=== PATIENT | male | born 1960 | race Asian ===

== ENCOUNTER 2018-11-11 07:17 | Outpatient (CLI) | payer MEDICAID ==
[2018-11-11 10:08] LABS: MEAN CORPUSCULAR HEMOGLOBIN 30.3 pg (27.0-31.0); MEAN CORPUSCULAR HGB CONC 33.8 g/dL (32.0-36.0); MEAN CORPUSCULAR VOLUME 89.7 fL (80.0-94.0); MEAN PLATELET VOLUME 11.4 fL (7.4-11.4); RED BLOOD COUNT 4.95 10^6/uL (4.70-6.10); RED CELL DISTRIBUTION WIDTH 12.8 % (12.0-15.0); WHITE BLOOD COUNT 7.1 x10^3/uL (4.8-10.8)
[2018-11-11 10:25] LABS: ALBUMIN 4.2 g/dL (3.2-5.5); ALBUMIN/GLOBULIN RATIO 1.3 (1.0-2.2); ALKALINE PHOSPHATASE 75 IU/L (42-121); ALT ALANINE AMINOTRANSFERASE 27 IU/L (10-60); AST ASPARTATE AMINOTRANSFERASE 16 IU/L (10-42); BILIRUBIN,TOTAL 0.9 mg/dL (0.2-1.0); BUN - BLOOD UREA NITROGEN 14 mg/dL (6-20); CALCIUM 9.3 mg/dL (8.5-10.3); CARBON DIOXIDE - CO2 27 mmol/L (21-32); CHLORIDE 101 mmol/L (101-111); CHOL/HDL RATIO 5.5 (<5.0); CHOLESTEROL 191 mg/dL; CREATININE 0.8 mg/dL (0.6-1.2); GFR - MDRD 100 (>89); GLUCOSE 314 mg/dL (70-100); HDL CHOLESTEROL 35 mg/dL; LDL CHOLESTEROL,CALCULATED 118 mg/dL; LDL/HDL RATIO 3.4 (<3.6); SODIUM 140 mmol/L (135-145); TOTAL PROTEIN 7.5 g/dL (6.7-8.2); VLDL CHOLESTEROL 38 mg/dL
[2018-11-11 10:26] LABS: CREATININE,URINE 99.3 mg/dL; MICROALBUM/CREATININE RATIO,UR 12.1 ug/mg (<30.0); MICROALBUMIN,URINE 1.2 mg/dL (0-300.0)
[2018-11-11 10:30] LABS: HB2 TOTAL 15.4 g/dL; HEMOGLOBIN A1C 1.51 g/dL; HEMOGLOBIN A1C % 11.1 % (4.6-6.2)
== END 2018-11-11 07:18 | disposition home or self-care (01) ==
LOC: LAB.S 07:17
PROVIDERS: ATTEND Internal Medicine
DX: E11.9 Type 2 diabetes mellitus without complications (principal); Z12.5 Encounter for screening for malignant neoplasm of prostate
CPT/HCPCS: 36415; 80053; 80061; 82043; 82570; 83036; 83721; 84153; 85025; 85027

== ENCOUNTER 2019-11-21 07:35 | Outpatient (CLI) | payer BC ==
[2019-11-21 15:11] LABS: BASOPHILS # (AUTO) 0.1 10^3/uL (0.0-0.1); BASOPHILS % (AUTO) 0.9 %; EOSINOPHILS # (AUTO) 0.2 10^3/uL (0.0-0.7); EOSINOPHILS % (AUTO) 3.5 %; HGB - HEMOGLOBIN 14.4 g/dL (14.0-18.0); LYMPHOCYTES # (AUTO) 2.3 10^3/uL (1.5-3.5); LYMPHOCYTES % (AUTO) 41.8 %; MEAN CORPUSCULAR HEMOGLOBIN 29.6 pg (27.0-31.0); MEAN CORPUSCULAR HGB CONC 32.3 g/dL (32.0-36.0); MEAN CORPUSCULAR VOLUME 91.8 fL (80.0-94.0); MONOCYTES # (AUTO) 0.4 10^3/uL (0.0-1.0); MONOCYTES % (AUTO) 6.8 %; NEUTROPHILS # (AUTO) 2.6 10^3/uL (1.5-6.6); NEUTROPHILS % (AUTO) 46.8 %; PLT - PLATELET COUNT 230 10^3/uL (130-450); RED BLOOD COUNT 4.86 10^6/uL (4.70-6.10); RED CELL DISTRIBUTION WIDTH 13.2 % (12.0-15.0); WHITE BLOOD COUNT 5.5 x10^3/uL (4.8-10.8)
[2019-11-21 15:29] LABS: HEMOGLOBIN A1c% 9.8 % (4.27-6.07)
[2019-11-21 15:39] LABS: ALBUMIN 4.2 g/dL (3.2-5.5); ALBUMIN/GLOBULIN RATIO 1.4 (1.0-2.2); ALKALINE PHOSPHATASE 52 IU/L (42-121); ALT ALANINE AMINOTRANSFERASE 30 IU/L (10-60); AST ASPARTATE AMINOTRANSFERASE 21 IU/L (10-42); BILIRUBIN,TOTAL 1.1 mg/dL (0.2-1.0); BUN - BLOOD UREA NITROGEN 15 mg/dL (6-20); CALCIUM 9.4 mg/dL (8.5-10.3); CARBON DIOXIDE - CO2 26 mmol/L (21-32); CHLORIDE 103 mmol/L (101-111); CHOLESTEROL 203 mg/dL; CREATININE 1.1 mg/dL (0.6-1.2); GLUCOSE 201 mg/dL (70-100); HDL CHOLESTEROL 34 mg/dL; LDL CHOLESTEROL,CALCULATED 133 mg/dL; LDL/HDL RATIO 3.9 (<3.6); SODIUM 136 mmol/L (135-145); TOTAL PROTEIN 7.3 g/dL (6.7-8.2); VLDL CHOLESTEROL 36 mg/dL
[2019-11-21 15:43] LABS: CREATININE,URINE 114.9 mg/dL; MICROALBUM/CREATININE RATIO,UR 2.6 ug/mg (<30.0); MICROALBUMIN,URINE 0.3 mg/dL (0-300.0)
== END 2019-11-21 07:36 | disposition home or self-care (01) ==
LOC: LAB.S 07:35
PROVIDERS: ATTEND Registered Nurse
DX: F32.9 Major depressive disorder, single episode, unspecified (principal); K57.90 Diverticulosis of intestine, part unspecified, without perforation or abscess without bleeding; K21.9 Gastro-esophageal reflux disease without esophagitis; E11.65 Type 2 diabetes mellitus with hyperglycemia
CPT/HCPCS: 36415; 80053; 80061; 81599; 82043; 82570; 83036; 83721; 84153; 84443; 85025; 87045; 87046; 87427

== ENCOUNTER 2020-05-13 07:33 | Outpatient (CLI) | payer OTHER | END 2020-05-13 07:34 | disposition home or self-care (01) | LOC: LAB.S 07:33 | PROVIDERS: ATTEND Registered Nurse | DX: F32.9 Major depressive disorder, single episode, unspecified (principal); K57.90 Diverticulosis of intestine, part unspecified, without perforation or abscess without bleeding; K21.9 Gastro-esophageal reflux disease without esophagitis; R19.7 Diarrhea, unspecified; E11.8 Type 2 diabetes mellitus with unspecified complications ==

== ENCOUNTER 2020-05-13 07:45 | Outpatient (CLI) | payer OTHER ==
--- NOTE | 2020-05-13 17:29 | XRAY Report ---
PROCEDURE: Lumbar Spine 2 View INDICATIONS: RADICULOPATHY TECHNIQUE: 3 views of the lumbar spine were acquired. COMPARISON: None. FINDINGS: Bones: 5 [id number] vertebrae are present. There is approximately 16 degrees of convex right jenae mbar spine scoliosis. There is normal bony alignment. No vertebral body compression fractures. No s uspicious bony lesions. Mild degenerative disc disease noted throughout the lumbar spine. Mild L4-L5 and L5-S1 facet arthropathy. Soft tissues: Overlying bowel gas pattern is normal. No suspicious soft tissue calcifications. IMPRESSION: 1. Multilevel degenerative disc disease. 2. Multilevel facet arthropathy. 3. Convex right scoliosis. 4. No fracture. No acute osseous lesion. If there is continued clinical concern for pathology, then M RI should be considered for further evaluation. Reviewed by: Katty Gayle MD, PhD on 05/13/2020 5:28 PM PDT Approved by: Katty Gayle MD, PhD on 05/13/2020 5:28 PM PDT Station ID: [id number]
== END 2020-05-13 07:46 | disposition home or self-care (01) ==
LOC: DI.S 07:45
PROVIDERS: ATTEND Registered Nurse
DX: M47.816 Spondylosis without myelopathy or radiculopathy, lumbar region (principal); M47.817 Spondylosis without myelopathy or radiculopathy, lumbosacral region; M51.36 Other intervertebral disc degeneration, lumbar region

== ENCOUNTER 2020-08-25 15:01 | Outpatient (CLI) | payer OTHER ==
--- NOTE | 2020-08-25 15:21 | XRAY Report ---
PROCEDURE: Foot 3 View RT INDICATIONS: CALCANEAL SPUR RIGHT FOOT TECHNIQUE: 3 views of the foot were acquired. COMPARISON: None FINDINGS: Bones: No fractures or dislocations. No suspicious bony lesions. Calcaneus has a plantar calcaneal spur and a posterior calcaneal spur. Soft tissues: No tibiotalar joint effusion. Achilles tendon appears normal. IMPRESSION: Plantar calcaneal spur and posterior calcaneal spur. No evidence acute bony abnormality of the right foot. Reviewed by: Bry Callejas MD on 08/25/2020 2:19 PM [facility] Approved by: Byr Callejas MD on 08/25/2020 2:19 PM [facility] Station ID: [id number]
== END 2020-08-25 23:59 | disposition home or self-care (01) ==
LOC: DI.S 15:01
PROVIDERS: ATTEND Emergency Medicine
DX: M77.31 Calcaneal spur, right foot (principal)

== ENCOUNTER 2020-10-10 07:03 | Outpatient (CLI) | payer OTHER ==
[2020-10-10 16:44] LABS: CALCIUM 9.3 mg/dL (8.5-10.3); POTASSIUM 3.7 mmol/L (3.5-5.0)
[2020-10-10 16:49] LABS: CREATININE,URINE 231.5 mg/dL; MICROALBUM/CREATININE RATIO,UR 4.8 ug/mg (<30.0); MICROALBUMIN,URINE 1.1 mg/dL (0-300.0)
[2020-10-10 21:34] LABS: ESTIMATED AVERAGE GLUCOSE 174 mg/dL (70-100); HEMOGLOBIN A1c% 7.7 % (4.27-6.07)
== END 2020-10-10 07:04 | disposition home or self-care (01) ==
LOC: LAB.S 07:03
PROVIDERS: ATTEND Registered Nurse
DX: E11.8 Type 2 diabetes mellitus with unspecified complications (principal)
CPT/HCPCS: 36415; 80048; 82043; 82570; 83036

== ENCOUNTER 2021-01-19 14:59 | Outpatient (CLI) | payer OTHER | END 2021-01-19 23:59 | disposition home or self-care (01) | LOC: LAB 14:59 | PROVIDERS: ATTEND Physician Assistant Medical | DX: J34.89 Other specified disorders of nose and nasal sinuses (principal); Z20.822 Contact with and (suspected) exposure to COVID-19 ==

== ENCOUNTER 2021-03-30 12:59 | Outpatient (CLI) | payer OTHER ==
--- NOTE | 2021-03-30 15:45 | XRAY Report ---
PROCEDURE: Knee 3 View LT, x-ray INDICATIONS: PAIN IN LEFT KNEE TECHNIQUE: 3 views of the left knee(s) were acquired. COMPARISON: None. FINDINGS: Bones: Orthopedic hardware noted associated with the medial tibial plateau. Stippled calcification no jazz overlying both menisci. Mild joint space narrowing noted involving both the medial and lateral co mpartments. Atherosclerotic calcification noted. Soft tissues: No joint effusion. No suspicious soft tissue calcifications. IMPRESSION: Chondrocalcinosis and mild osteoarthritis Popliteal calcific atherosclerosis Orthopedic hardware Reviewed by: Shiv Chase MD on 03/30/2021 2:44 PM AK[facility] Approved by: Shiv Chase MD on 03/30/2021 2:44 PM AKST Station ID: [id number]
== END 2021-03-30 23:59 | disposition home or self-care (01) ==
LOC: DI.S 12:59
PROVIDERS: ATTEND Registered Nurse
DX: M17.12 Unilateral primary osteoarthritis, left knee (principal); M11.262 Other chondrocalcinosis, left knee

== ENCOUNTER 2021-04-08 07:45 | Outpatient (CLI) | payer OTHER ==
--- NOTE | 2021-04-08 12:47 | XRAY Report ---
PROCEDURE: Knee 4 View LT INDICATIONS: LEFT KNEE PAIN TECHNIQUE: 3 views of the left knee(s) were acquired. AP view of both knees. COMPARISON: March 30, 2021. FINDINGS: BONES/JOINT: No acute, displaced fracture or dislocation. Small suprapatellar joint effusion. Mild to moderate bilateral medial compartment narrowing. Postsurgical change of the left medial tibia. Sclerotic focus within the left fibula head, which may reflect a bone island or enchondroma. SOFT TISSUES: No significant abnormality. Bilateral meniscal calcification. IMPRESSION: 1.No acute osseous abnormality. Reviewed by: Feliciano Jimenez MD on 04/08/2021 12:46 PM PST Approved by: Feliciano Jimenez MD on 04/08/2021 12:46 PM PST Station ID: [id number]
== END 2021-04-08 07:46 | disposition home or self-care (01) ==
LOC: DI.WOS 07:45
PROVIDERS: ATTEND Physician Assistant
DX: M25.362 Other instability, left knee (principal)

== ENCOUNTER 2021-04-21 07:15 | Outpatient (CLI) | payer OTHER ==
--- NOTE | 2021-04-21 10:53 | MRI Report ---
PROCEDURE: Knee LT W/O INDICATIONS: PAIN IN LEFT KNEE, INSTABILITY OF LEFT KNEE JOINT TECHNIQUE: Noncontrast sagittal PD fast spin echo and T2 fast spin echo with fat saturation, sagittal 3-D spoile d GE with fat saturation; coronal T1 spin echo and PD fast spin echo with fat saturation, and axial P D fast spin echo with fat saturation through the knee. COMPARISON: Left knee radiographs 04/08/2021 FINDINGS: Image quality: Excellent. Menisci: There is horizontal oblique tearing of the posterior horn and body of the medial meniscus e xtending to the inner third of the tibial articular surface. A 4 mm linear hypointense structure farnaz cent to the posterior horn of the medial meniscus (image 21 of series 401 and image 21 of series 901) may represent a centrally displaced meniscal flap fragment or possibly an intra-articular loose body . There is horizontal tearing of the lateral meniscal body extending to the free edge margin. Cruciate ligaments: The anterior and posterior cruciate ligaments appear intact. Medial structures: Metallic staple is seen at the medial aspect of the tibial plateau that is likely secondary to prior distal medial collateral ligament fixation. Mild thickening of the medial collate ral ligament is consistent with a prior sprain, without the ligament fibers appear to be intact. The semimembranosus tendon insertions appear intact. Visualized portions of the pes anserinus tendons a ppear normal. Lateral structures: The lateral collateral ligament, long and short heads of the biceps femoris tend on appear intact. The popliteus tendon appears intact. Iliotibial band appears normal. Anterior structures: Mild proximal patellar tendinosis. The distal quadriceps tendon is intact. No f emoral trochlear dysplasia or ventral trochlear prominence. No edema in the infrapatellar fat pad. Bones and cartilage: No bone marrow contusion or acute fracture. Focal mild to moderate partial thi ckness cartilage loss is seen in the central to posterior weightbearing portion of the medial femoral condyle. Mild surface irregularity is seen in the lateral compartment at the central weightbearing p ortion lateral femoral condyle and the posterior weightbearing portion of the lateral tibial plateau. Mild surface irregularity is seen in the articular cartilage of the lateral patellar facet and the t rochlear groove. Joint space and soft tissues: There is a small joint effusion. There is a moderate medial popliteal cyst with a small amount of surrounding edema that may indicate prior cyst rupture. IMPRESSION: 1.Postoperative changes from prior distal medial collateral ligament repair with a metallic staple in the medial tibial plateau. The bulk of the medial collateral ligament fibers remain in continuity. 2.Horizontal oblique tearing of the posterior horn and body medial meniscus extending to the inner th ird of the tibial articular surface. Possible small centrally displaced meniscal flap fragment versus intra-articular loose body in the medial compartment adjacent to the posterior horn. 3.Horizontal tear of the lateral meniscal body extending to the free edge margin. 4.Mild proximal patellar tendinosis. 5.Tricompartmental grade II chondromalacia. 6.Small joint effusion. Moderate medial popliteal cyst with signs of possible prior cyst rupture. Reviewed by: Neptali Goddard MD on 04/21/2021 10:52 AM PST Approved by: Neptali Goddard MD on 04/21/2021 10:52 AM PST Station ID: [id number]
== END 2021-04-21 07:16 | disposition home or self-care (01) ==
LOC: DI 07:15
PROVIDERS: ATTEND Physician Assistant
DX: S83.282A Other tear of lateral meniscus, current injury, left knee, initial encounter (principal); M67.962 Unspecified disorder of synovium and tendon, left lower leg; M94.262 Chondromalacia, left knee; M25.462 Effusion, left knee; M71.22 Synovial cyst of popliteal space [Baker], left knee

== ENCOUNTER 2021-06-06 07:25 | Outpatient (CLI) | payer OTHER ==
[2021-06-06 14:57] LABS: BASOPHILS % (AUTO) 0.6 %; EOSINOPHILS # (AUTO) 0.2 10^3/uL (0.0-0.7); EOSINOPHILS % (AUTO) 3.3 %; HGB - HEMOGLOBIN 13.8 g/dL (14.0-18.0); LYMPHOCYTES # (AUTO) 2.1 10^3/uL (1.5-3.5); LYMPHOCYTES % (AUTO) 43.2 %; MEAN CORPUSCULAR HEMOGLOBIN 29.7 pg (27.0-31.0); MEAN CORPUSCULAR HGB CONC 32.9 g/dL (32.0-36.0); MEAN CORPUSCULAR VOLUME 90.5 fL (80.0-94.0); MONOCYTES # (AUTO) 0.4 10^3/uL (0.0-1.0); MONOCYTES % (AUTO) 7.2 %; NEUTROPHILS # (AUTO) 2.2 10^3/uL (1.5-6.6); NEUTROPHILS % (AUTO) 45.5 %; PLT - PLATELET COUNT 214 10^3/uL (130-450); RED BLOOD COUNT 4.64 10^6/uL (4.70-6.10); RED CELL DISTRIBUTION WIDTH 14.3 % (12.0-15.0); WHITE BLOOD COUNT 4.8 x10^3/uL (4.8-10.8)
[2021-06-06 15:19] LABS: ALBUMIN/GLOBULIN RATIO 1.4 (1.0-2.2); ALKALINE PHOSPHATASE 47 IU/L (42-121); ALT ALANINE AMINOTRANSFERASE 26 IU/L (10-60); AST ASPARTATE AMINOTRANSFERASE 22 IU/L (10-42); BILIRUBIN,TOTAL 1.3 mg/dL (0.2-1.0); BUN - BLOOD UREA NITROGEN 17 mg/dL (6-20); CALCIUM 9.6 mg/dL (8.5-10.3); CARBON DIOXIDE - CO2 25 mmol/L (21-32); CHLORIDE 102 mmol/L (101-111); CHOL/HDL RATIO 6.4 (<5.0); CHOLESTEROL 193 mg/dL; GFR - MDRD 77 (>89); GLUCOSE 162 mg/dL (70-100); HDL CHOLESTEROL 30 mg/dL; LDL CHOLESTEROL,CALCULATED 133 mg/dL; LDL/HDL RATIO 4.4 (<3.6); POTASSIUM 3.9 mmol/L (3.5-5.0); SODIUM 137 mmol/L (135-145); TOTAL PROTEIN 6.9 g/dL (6.7-8.2); TRIGLYCERIDES 152 mg/dL; VLDL CHOLESTEROL 30 mg/dL
[2021-06-06 15:27] LABS: THYROID STIMULATING HORMONE 1.67 uIU/mL (0.34-5.60)
[2021-06-06 18:14] LABS: ESTIMATED AVERAGE GLUCOSE 183 mg/dL (70-100)
== END 2021-06-06 07:26 | disposition home or self-care (01) ==
LOC: LAB.S 07:25
PROVIDERS: ATTEND Registered Nurse
DX: E11.8 Type 2 diabetes mellitus with unspecified complications (principal); Z12.5 Encounter for screening for malignant neoplasm of prostate; Z13.29 Encounter for screening for other suspected endocrine disorder
CPT/HCPCS: 36415; 80053; 80061; 83036; 83721; 84153; 84443; 85025

== ENCOUNTER 2021-10-27 08:00 | Outpatient (CLI) | payer OTHER ==
--- NOTE | 2021-10-27 18:18 | XRAY Report ---
PROCEDURE: Knee 4 View BILAT INDICATIONS: BILAT KNEE PAIN TECHNIQUE: 4 views of the bilateral knee(s) were acquired. COMPARISON: 04-08-2021 FINDINGS: Bones: Fixation hardware noted associated with the right medial tibial plateau. Joint spaces are pre served. Minimal stippled calcification left menisci reflects chondrocalcinosis, similar prior. Soft tissues: No joint effusion. No suspicious soft tissue calcifications. IMPRESSION: Mild degenerative changes, stable from the prior Reviewed by: Shiv Chase MD on 10/27/2021 5:16 PM [facility] Approved by: Shiv Chase MD on 10/27/2021 5:16 PM AKDT Station ID: [id number]
== END 2021-10-27 23:59 | disposition home or self-care (01) ==
LOC: DI.WOS 08:00
PROVIDERS: ATTEND Physician Assistant
DX: M11.262 Other chondrocalcinosis, left knee (principal); M25.561 Pain in right knee

== ENCOUNTER 2022-02-26 13:43 | Outpatient (CLI) | payer OTHER ==
--- NOTE | 2022-02-26 15:02 | XRAY Report ---
PROCEDURE: Chest 2 View X-Ray INDICATIONS: CHEST XRAY TECHNIQUE: 2 views of the chest were acquired. COMPARISON: None available. FINDINGS: Surgical changes and devices: None. Lungs and pleura: No pleural effusions or pneumothorax. Lungs are clear. Mediastinum: Mediastinal contours are normal. Heart size is normal. Bones and chest wall: No suspicious bony abnormalities. Soft tissues appear unremarkable. IMPRESSION: No acute cardiopulmonary disease. Reviewed by: Kimmie Tuttle MD on 02/26/2022 3:01 PM [facility] Approved by: Kimmie Tuttle MD on 02/26/2022 3:01 PM [facility] Station ID: [id number]
== END 2022-02-26 13:44 | disposition home or self-care (01) ==
LOC: DI.S 13:43
PROVIDERS: ATTEND Registered Nurse
DX: R06.09 Other forms of dyspnea (principal)

== ENCOUNTER 2022-03-09 17:15 | Outpatient (CLI) | payer OTHER ==
--- NOTE | 2022-03-10 08:06 | XRAY Report ---
PROCEDURE: Hand 3 View RT INDICATIONS: JOINT PAIN IN RIGHT HAND TECHNIQUE: 3 views of the hand(s) acquired. COMPARISON: None FINDINGS: Bones: No fractures or dislocations. No suspicious bony lesions. Mild osteoarthritic changes in wr ist and hand involving radiocarpal joint, triscaphe joint, first carpal metacarpal joint, first metac arpal phalangeal joint and multiple interphalangeal joints. Soft tissues: No suspicious soft tissue calcifications. IMPRESSION: Mild osteoarthritis. Reviewed by: Kimmie Tuttle MD on 03/10/2022 8:04 AM [facility] Approved by: Kimmie Tuttle MD on 03/10/2022 8:04 AM [facility] Station ID: [id number]
== END 2022-03-09 17:16 | disposition home or self-care (01) ==
LOC: DI.S 17:15
PROVIDERS: ATTEND Registered Nurse
DX: M19.041 Primary osteoarthritis, right hand (principal)

== ENCOUNTER 2022-05-29 07:21 | Outpatient (CLI) | payer OTHER ==
[2022-05-29 14:32] LABS: BASOPHILS % (AUTO) 0.5 %; EOSINOPHILS # (AUTO) 0.1 10^3/uL (0.0-0.7); EOSINOPHILS % (AUTO) 1.4 %; HCT - HEMATOCRIT 42.6 % (42.0-52.0); HGB - HEMOGLOBIN 13.5 g/dL (14.0-18.0); LYMPHOCYTES % (AUTO) 35.4 %; MEAN CORPUSCULAR HEMOGLOBIN 29.6 pg (27.0-31.0); MEAN CORPUSCULAR HGB CONC 31.7 g/dL (32.0-36.0); MEAN CORPUSCULAR VOLUME 93.4 fL (80.0-94.0); MEAN PLATELET VOLUME 10.7 fL (7.4-11.4); MONOCYTES # (AUTO) 0.4 10^3/uL (0.0-1.0); MONOCYTES % (AUTO) 7.2 %; NEUTROPHILS # (AUTO) 3.1 10^3/uL (1.5-6.6); NEUTROPHILS % (AUTO) 55.1 %; PLT - PLATELET COUNT 215 10^3/uL (130-450); RED BLOOD COUNT 4.56 10^6/uL (4.70-6.10); RED CELL DISTRIBUTION WIDTH 13.6 % (12.0-15.0); WHITE BLOOD COUNT 5.7 x10^3/uL (4.8-10.8)
[2022-05-29 14:57] LABS: CREATININE,URINE 192.5 mg/dL; MICROALBUM/CREATININE RATIO,UR 10.4 ug/mg (<30.0)
[2022-05-29 14:58] LABS: ALBUMIN 4.1 g/dL (3.2-5.5); ALBUMIN/GLOBULIN RATIO 1.3 (1.0-2.2); ALKALINE PHOSPHATASE 47 IU/L (42-121); ALT ALANINE AMINOTRANSFERASE 30 IU/L (10-60); AST ASPARTATE AMINOTRANSFERASE 19 IU/L (10-42); BILIRUBIN,TOTAL 0.6 mg/dL (0.2-1.0); BUN - BLOOD UREA NITROGEN 22 mg/dL (6-20); CALCIUM 9.1 mg/dL (8.5-10.3); CARBON DIOXIDE - CO2 29 mmol/L (21-32); CHLORIDE 107 mmol/L (101-111); CHOL/HDL RATIO 4.4 (<5.0); CHOLESTEROL 164 mg/dL; CREATININE 0.9 mg/dL (0.6-1.2); GFR - MDRD 86 (>89); GLUCOSE 180 mg/dL (70-100); HDL CHOLESTEROL 37 mg/dL; LDL CHOLESTEROL,CALCULATED 108 mg/dL; LDL/HDL RATIO 2.9 (<3.6); POTASSIUM 4.6 mmol/L (3.5-5.0); SODIUM 141 mmol/L (135-145); TOTAL PROTEIN 7.2 g/dL (6.7-8.2); TRIGLYCERIDES 95 mg/dL; VLDL CHOLESTEROL 19 mg/dL
[2022-05-29 15:01] LABS: THYROID STIMULATING HORMONE 1.5 uIU/mL (0.34-5.60)
[2022-05-29 22:06] LABS: ESTIMATED AVERAGE GLUCOSE 220 mg/dL (70-100); HEMOGLOBIN A1c% 9.3 % (4.27-6.07)
== END 2022-05-29 07:22 | disposition home or self-care (01) ==
LOC: LAB.S 07:21
PROVIDERS: ATTEND Registered Nurse
DX: I10 Essential (primary) hypertension (principal); E78.5 Hyperlipidemia, unspecified; Z13.9 Encounter for screening, unspecified; E11.8 Type 2 diabetes mellitus with unspecified complications
CPT/HCPCS: 36415; 80053; 80061; 82043; 82570; 83036; 83721; 84153; 84443; 85025

== ENCOUNTER 2022-06-25 14:54 | Outpatient (CLI) | payer OTHER | END 2022-06-25 14:55 | disposition home or self-care (01) | LOC: RT 14:54 | PROVIDERS: ATTEND Registered Nurse | DX: R06.09 Other forms of dyspnea (principal) | CPT/HCPCS: 94010; 94729 ==

== ENCOUNTER 2022-07-21 08:51 | Outpatient (CLI) | payer OTHER ==
--- NOTE | 2022-07-21 09:38 | CARDIAC PROCEDURE NOTE ---
Stress Test Report Service Date: 07/21/22 Service Time: 09:30 Ordering Provider: Bernice Negrete FNP-C Indication for Test: Assess for an ischemic contribution to marked chronic fatigue, dizziness and exertional dyspnea. Significant Medical History: Salvatore is referred for a treadmill stress echocardiogram today to assess for an ischemic contribution to significant fatigue that he dates back to 2019, following a COVID infection. He notes that since that time he has had a lack of stamina and becomes dyspneic, for example when carrying a couple of bags of groceries upstairs. 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 In addition to the COVID infection he also has been treated for diabetes since 2020 with blood sugars that on a recent hemoglobin A1c were found to be more elevated (9.3% compared with 8%). He notices daytime somnolence in addition to exertional dyspnea, but denies experience any chest pressure, discomfort or tightness. His weight has been relatively stable. As part of his work-up he underwent screening pulmonary function tests that were unremarkable. It sounds like he may have sleep apnea, as his notices that he gasps while sleeping, but he has not undergone a sleep evaluation yet. When seen in clinic a few weeks ago an EKG was performed that showed sinus rhythm with incomplete left bundle branch block versus left anteror fascicular block pattern. I reviewed this EKG prior to the patient coming for the test today and note that it does show QRS prolongation to 110 ms but appears to have interpretable ST segments. There is also concern for Q waves in leads V1 and V2. Cardiac Risk Factors: Most notable for diabetes of at least 2-3 years duration, though probably present longer than that. He is treated with an SHAILESH inhibitor and atorvastatin for cardiovascular protection. There is a family history of hypertension but no history of atherosclerotic disease to his knowledge. 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 Type of Stress Test: ETT with Echocardiography Procedure: -Exercise Treadmill Test- After signing informed consent, the patient underwent echo imaging at rest and then performed treadmill exercise using a Jonathan protocol. The patient exercised for 6 minutes 34 seconds and achieved a peak heart rate of 138 (86 percent predicted maximum heart rate for age), and an estimated workload of 7.9 METS. The test was terminated due to fatigue/shortness of breath. Resting heart rate: 81 Peak heart rate: 138 Normal response to exercise. Resting BP: 116/80 Peak BP: 164/81; note that this was obtained late in stage I, and a repeat measurement at the end of stage II did not show further augmentation (161/79). Overall this is an abnormal BP response to exercise. Patient's resting O2 saturation on room air was 98%, but it decreased sequentially in stage I (94%, 92% then 86%) with the latter measurement confirmed using an second oximeter on the other hand (85%). Values as low as 68 -71% were recorded in stage II, with full normalization by 4 minutes of Recovery. Rhythm during exercise: Sinus rhythm throughout, with very rare isolated PVCs. Symptoms: Notable symptoms included shortness of breath, leg heaviness and fatigue with exercise; he denied experiencing any chest discomfort whatsoever. The only lightheadedness that he described was briefly at the cessation of exercise when the treadmill was stopped abruptly and before he was able to lie down to undergo the stress echo imaging portion of the exam. EKG at rest showed normal sinus rhythm with left axis deviation and delayed precordial R/S transition with abnormal QS pattern in leads V1 and V2. Computer interpretation was incomplete left bundle branch block but I believe a more appropriate description is left anterior fascicular block, with aforementioned abnormalities in V1 and V2. EKG at peak stress showed no ischemia by EKG criteria. In Recovery HR and BP returned towards baseline levels. Echo imaging, performed at rest and with stress, will be reported separately. IFelix MD, was present throughout this treadmill stress study and supervised it in its entirety. Summary: 1) Exercise tolerance markedly reduced for age as evidenced by FRACISCO of 21.3%. 2) Abnormal resting EKG. 3) Adequate level of exercise was probably achieved on this treadmill stress test. 4) Abnormal BP response to exercise, with early increase in stage I but failure to augment further in stage II. 5) No ischemic changes by EKG criteria were seen at peak stress. 6) Significant O2 desaturation was observed, as described above. 7) Echo image interpretation reveals normal resting left ventricular size, wall thickness and systolic function. There was appropriate hyperdynamic augmentation of all segments with exercise, indicating no evidence of prior infarct or inducible ischemia. No significant valvular abnormality or elevation of estimated pulmonary artery systolic pressure seen on screening study. See separate report for more details. Conclusions and Recommendations: 1) The patient recreated his symptoms (early dyspnea and fatigue) on this Jontahan protocol ETT but there was no clear evidence of an ischemic contribution. 2) Rather, there was significant exertional oxygen desaturation, pointing to intrinsic lung disease as etiologic for his symptoms. He recently underwent pulmonary function tests that were rather unremarkable, but today's findings do suggest that oxygen supplementation is appropriate and could help with symptoms. 3) The patient tells me that he is scheduled for a sleep consultation on August 14 and it may also be prudent for him to undergo further lung directed work-up, such as with a high-resolution chest CT scan, to look for interstitial changes.
== END 2022-07-21 08:52 | disposition home or self-care (01) ==
LOC: DI 08:51
PROVIDERS: ATTEND Registered Nurse
DX: R53.83 Other fatigue (principal); R06.09 Other forms of dyspnea; I44.7 Left bundle-branch block, unspecified; E11.9 Type 2 diabetes mellitus without complications; R94.31 Abnormal electrocardiogram [ECG] [EKG]; Z86.16 Personal history of COVID-19
CPT/HCPCS: 93350

== ENCOUNTER 2022-07-31 14:43 | Outpatient (CLI) | payer OTHER ==
--- NOTE | 2022-07-31 19:54 | CT Report ---
PROCEDURE: CHEST WO INDICATIONS: OXYGEN DESATURATION TECHNIQUE: Noncontrast 1mm axial images were acquired from the pulmonary apices to the posterior costophrenic an gles. Axial 5 mm soft tissue kernel reconstructions were performed as well as 8 mm axial MIP and cor onal and sagittal 5 mm reformations. For radiation dose reduction, the following was used: automate d exposure control, adjustment of mA and/or kV according to patient size. COMPARISON: None FINDINGS: Image quality: Excellent. Lungs and pleura: No consolidation. No pleural effusions. No pneumothorax. No suspicious pulmonary n odules which require follow up. Central and peripheral airways are normal caliber without bronchial w all thickening or bronchiectasis. Mediastinum: Heart size is normal. No pericardial effusions. No mediastinal adenopathy by size criter ia. No large vessel abnormality. Minor aortic valvular calcification. No coronary artery calcificatio n seen. No anterior or posterior mediastinal mass. Normal esophagus without hiatal hernia Chest wall and lower neck: Thyroid is unremarkable. No axillary or supraclavicular adenopathy by size . Bones: No aggressive osseous abnormality. Upper Abdomen: Small hypodensities posteriorly in segment 7 of the liver incompletely characterized o n this study. Cystic lesion arising from the upper pole right kidney. Fatty deposition within the johansen creas. IMPRESSION: 1. No CT evidence of acute cardiopulmonary process. 2. Further evaluation of hepatic hypodensity is recommended with hepatic protocol CT or MRI. Reviewed by: Ashley Vaughn MD on 07/31/2022 6:53 PM [facility] Approved by: Ashley Vaughn MD on 07/31/2022 6:53 PM [facility] Station ID: [id number]
== END 2022-07-31 14:44 | disposition home or self-care (01) ==
LOC: DI 14:43
PROVIDERS: ATTEND Registered Nurse
DX: R09.02 Hypoxemia (principal)

== ENCOUNTER 2022-08-07 14:00 | Outpatient (CLI) | payer OTHER ==
[2022-08-07 14:27] LABS: CREATININE 1.1 mg/dL (0.6-1.2)
[2022-08-07] MEDS ORDERED: iohexoL-300 100 ML VIAL ONE (14:28)
[2022-08-07] MEDS ORDERED: iohexoL-300 100 ML VIAL IVP ONE (14:44)
--- NOTE | 2022-08-07 17:00 | CT Report ---
PROCEDURE: ABDOMEN W/WO INDICATIONS: LIVER LESION CONTRAST: 100ml omni 300 TECHNIQUE: 4 phase scanning was performed. After the administration of intravenous contrast, 5 mm thick section s acquired from the diaphragm to the symphysis. 5 mm coronal and sagittal reformats were acquired. For radiation dose reduction, the following was used: automated exposure control, adjustment of mA a nd/or kV according to patient size. COMPARISON: CT 07/31/2022 FINDINGS: Image quality: Excellent. Liver: Noncirrhotic liver morphology. Hypoattenuating liver lesions in segment 7 demonstrating no enh ancement, and fluid attenuation, most consistent with benign cysts. OTHER: Lung bases and heart: Unremarkable. Gallbladder and biliary tree: No radiopaque stones or wall thickening. No biliary dilation. Spleen: No splenomegaly. Pancreas: No pancreatic ductal dilation. Adrenals: No adrenal nodule. Kidneys and ureters: No hydronephrosis. No renal cystic lesion which requires follow up. No solid mas s. Bowel and peritoneum: No bowel distension. No pathologic free fluid. Lymph nodes: No central or retroperitoneal adenopathy. Vessels: No infrarenal aortic aneurysm. Bones: No aggressive osseous abnormality. Other: No significant ventral hernia. IMPRESSION: The previously described liver lesions correspond to benign cysts. Reviewed by: Esteban Rogers on 08/07/2022 4:58 PM PDT Approved by: Esteban Rogers on 08/07/2022 4:58 PM PDT Station ID: [id number]
== END 2022-08-07 14:01 | disposition home or self-care (01) ==
LOC: LAB 14:00
PROVIDERS: ATTEND Registered Nurse
DX: K76.9 Liver disease, unspecified (principal)
CPT/HCPCS: 36415; 74170; 82565; Q9967

== ENCOUNTER 2022-08-09 20:33 | Outpatient (CLI) | payer OTHER | END 2022-08-09 23:59 | disposition critical access hospital (66) | LOC: EMS 20:33 | DX: R42 Dizziness and giddiness (principal); R41.0 Disorientation, unspecified; R53.83 Other fatigue | CPT/HCPCS: A0425; A0427 ==

== ENCOUNTER 2022-08-09 21:05 | Emergency (ER) | payer OTHER ==
--- NOTE | 2022-08-09 21:35 | ED Physician Documentation ---
History of Present Illness - Stated complaint Stated Complaint: SYNCOPE VS SEIZURE - History obtained from History obtained from: Patient - Additonal information Additional information: 62yM with pmh dm2, depression, nonsmoker, p/w recurrent near syncopal epsidodes for the past few months, usually related to position changes, as well as several months of generalized weakness. patient has had extensive workup including ct chest/a/p, ekgs, stress echocardiogram without specific findings. Patient had episode tonight in which he stood from the toilet and took a few steps, felt lightheaded, then lowered to the ground then laid in bed. denies LOC or HT. denies pain anywhere. denies cp, soa, fever. he did have nausea that resolved en route with 4mg IV zofran given by ems. Review of Systems Constitutional: denies: Fever, Chills Cardiac: denies: Chest pain / pressure Respiratory: denies: Dyspnea GI: reports: Nausea. denies: Abdominal Pain, Vomiting Musculoskeletal: denies: Back pain Neurologic: reports: Generalized weakness, Other (dizziness). denies: Focal weakness, Numbness PD PAST MEDICAL HISTORY - Past Medical History Endocrine/Autoimmune: Type 2 diabetes Psych: Depression - Present Medications Home Medications: Ambulatory Orders Medication Instructions Recorded Confirmed Fluoxetine HCl 20 mg PO DAILY 12/14/18 12/14/18 Metformin HCl 500 mg PO BID 12/14/18 12/14/18 Omeprazole 40 mg PO DAILY 12/14/18 12/14/18 metroNIDAZOLE [Metronidazole] 500 mg PO PRN PRN 12/14/18 12/14/18 - Allergies Allergies/Adverse Reactions: Allergies Allergy/AdvReac Type Severity Reaction Status Date / Time codeine Allergy Unknown Verified 12/14/18 17:22 latex Allergy Unknown Verified 12/14/18 17:22 meperidine [From Demerol] Allergy Unknown Verified 12/14/18 17:22 - Social History Smoking Status: Never smoker PD ED PE NORMAL - Vitals Vital signs reviewed: Yes - General General: Alert and oriented X 3, No acute distress, Well developed/nourished - HEENT HEENT: Atraumatic, PERRL, EOMI - Neck Neck: Supple, no meningeal sign - Cardiac Cardiac: RRR - Respiratory Respiratory: No respiratory distress, Clear bilaterally - Abdomen Abdomen: Non tender, Non distended - Derm Derm: Normal color, Warm and dry - Extremities Extremities: No deformity - Neuro Neuro: Alert and oriented X 3, No motor deficit, No sensory deficit - Psych Psych: Normal mood, Normal affect Results - Vitals Vitals: Vital Signs - 24 hr 08/09/22 08/09/22 21:27 22:35 Temperature 36.3 C L Heart Rate 63 65 Respiratory 18 12 Rate Blood Pressure 130/88 H 117/79 O2 Saturation 97 98 Oxygen O2 Source Room air - EKG (time done) 2115 EKG releavant findings:: EKG personally interpreted by author of this note. Relevant findings are: Rate: Rate (enter#) (63) Rhythm: NSR [place]: Normal Intervals: Normal IN, Other (incomplete LBBB, documented as present on ekg from clinic in April 2022. ) QRS: Normal Ischemia: Normal ST segments - Labs Labs: Laboratory Tests 08/09/22 08/09/22 21:45 21:45 WBC 7.4 RBC 4.39 L Hgb 13.0 L Hct 40.1 L MCV 91.3 MCH 29.6 MCHC 32.4 RDW 13.4 Plt Count 189 MPV 10.3 Neut # (Auto) 5.2 Lymph # (Auto) 1.5 [place] # (Auto) 0.5 Eos # (Auto) 0.1 Baso # (Auto) 0.0 Absolute Nucleated RBC 0.00 Nucleated RBC % 0.0 Sodium 140 Potassium 3.8 Chloride 107 Carbon Dioxide 27 Anion Gap 6.0 BUN 17 Creatinine 0.9 Estimated GFR (MDRD) 86 L Glucose 137 H Calcium 8.8 Total Bilirubin 0.8 AST 25 ALT 40 Alkaline Phosphatase 43 Total Protein 7.1 Albumin 4.2 Globulin 2.9 Albumin/Globulin Ratio 1.4 Lipase 23 PD Medical Decision Making - ED course ED course: 62yM with pmh recurrent syncope p/w pre-syncopal episode tonight after standing from the toilet. patient is well appearing in the ED, asymptomatic with normal vital signs and exam. He has already had extensive workup for syncope without uncovering any emergent cause. CBC, abdominal panel, ekg ordered. EKG showed nsr with incomplete LBBB which is same as ekg from clinic in april per April clinic notes. His cbc and abdominal panel were unremarkable with exception of mild anemia hb 13.0, down from 13.5 05/29/22. denies blood in stool or dark stools. CLAUDIO showed brown stool. Plan to f/u with pcp at appointment this Wednesday. return precautions given. Departure - Departure Disposition: 01 Home, Self Care Clinical Impression: Dizziness Condition: Stable Instructions: ED Dizziness [facility] Comments: You were seen in the ED for near-fainting spell. Your labwork uncovered no emergent issues. Please follow up with your primary care provider this Wednesday and return to the ED if you have new or worsening symptoms or other concerns. Discharge Date/Time: 08/09/22 22:35
[2022-08-09 21:52] LABS: BASOPHILS % (AUTO) 0.5 %; EOSINOPHILS # (AUTO) 0.1 10^3/uL (0.0-0.7); EOSINOPHILS % (AUTO) 1.9 %; HCT - HEMATOCRIT 40.1 % (42.0-52.0); LYMPHOCYTES # (AUTO) 1.5 10^3/uL (1.5-3.5); LYMPHOCYTES % (AUTO) 20.7 %; MEAN CORPUSCULAR HEMOGLOBIN 29.6 pg (27.0-31.0); MEAN CORPUSCULAR HGB CONC 32.4 g/dL (32.0-36.0); MEAN CORPUSCULAR VOLUME 91.3 fL (80.0-94.0); MEAN PLATELET VOLUME 10.3 fL (7.4-11.4); MONOCYTES # (AUTO) 0.5 10^3/uL (0.0-1.0); MONOCYTES % (AUTO) 6.7 %; NEUTROPHILS # (AUTO) 5.2 10^3/uL (1.5-6.6); NEUTROPHILS % (AUTO) 69.9 %; PLT - PLATELET COUNT 189 10^3/uL (130-450); RED BLOOD COUNT 4.39 10^6/uL (4.70-6.10); RED CELL DISTRIBUTION WIDTH 13.4 % (12.0-15.0); WHITE BLOOD COUNT 7.4 x10^3/uL (4.8-10.8)
[2022-08-09 22:06] LABS: ALBUMIN 4.2 g/dL (3.2-5.5); ALBUMIN/GLOBULIN RATIO 1.4 (1.0-2.2); BILIRUBIN,TOTAL 0.8 mg/dL (0.2-1.0); CALCIUM 8.8 mg/dL (8.5-10.3); CREATININE 0.9 mg/dL (0.6-1.2); POTASSIUM 3.8 mmol/L (3.5-5.0); TOTAL PROTEIN 7.1 g/dL (6.7-8.2)
[2022-08-09 22:41] VITALS: BP 117/79
== END 2022-08-09 22:35 | disposition home or self-care (01) ==
LOC: EDUNIT# → ED 21:05
DX: R42 Dizziness and giddiness (principal); E11.9 Type 2 diabetes mellitus without complications; Z79.84 Long term (current) use of oral hypoglycemic drugs; Z91.040 Latex allergy status
CPT/HCPCS: 36415; 80053; 83690; 85025; 93005; 99283; 99284

== ENCOUNTER 2022-08-17 08:00 | Outpatient (CLI) | payer OTHER ==
--- NOTE | 2022-08-17 18:07 | XRAY Report ---
PROCEDURE: Knee 4 View BILAT INDICATIONS: BILAT KNEE PAIN TECHNIQUE: 4 views of the right and left knee(s) were acquired. COMPARISON: 10/07/2021 FINDINGS: Bones: No acute fracture or dislocation identified. Postsurgical changes of the medial left tibia re demonstrated. Mild tricompartmental joint space narrowing present in both knees. Soft tissues: No knee joint effusion. Left knee chondrocalcinosis. IMPRESSION: No acute bony abnormality. Mild degenerative changes of both knees. Left knee chondrocalcinosis, a nonspecific finding that can be seen in the setting of CPPD, osteoarth ritis, or other etiologies. Reviewed by: Neptali Albert MD on 08/17/2022 6:05 PM PDT Approved by: Neptali Albert MD on 08/17/2022 6:05 PM PDT Station ID: [id number]
== END 2022-08-17 23:59 | disposition home or self-care (01) ==
LOC: DI.WOS 08:00
PROVIDERS: ATTEND Physician Assistant Surgical
DX: M17.0 Bilateral primary osteoarthritis of knee (principal); M11.262 Other chondrocalcinosis, left knee

== ENCOUNTER 2022-09-11 14:35 | Outpatient (CLI) | payer OTHER ==
--- NOTE | 2022-09-11 15:04 | Sleep Patient Instructions ---
Sleep Center Visit Summary - Patient Visit Information Reason for Visit: Initial consult for evaluation of sleep disordered breathing and other sleep issues. - Patient Instructions Instructions Attached: Sleep Study, Sleep Clinic Visit, Sleep Study Home Monitor Additional Instructions: You will be completing a sleep study, either an in-lab polysomnography (PSG) or home sleep study (HST). You will follow-up in the sleep care office after the sleep study is completed to hear the results and talk about therapy, if needed. You will be called by our office staff to schedule this appointment, but you may contact us with any questions. - Clinic Information Contact: [facility] [address] [place] [address] [email or web address] T: [phone]
--- NOTE | 2022-09-11 15:11 | SLEEP CARE CONSULTATION ---
Information from patient questionnaire entered by Annika Martins. I have reviewed and concur with the information entered by Annika Martins. This document represents the service I personally performed and the decisions made by me, Paige Lara ARNP. History of Present Illness Service Date and Time: 09/11/2022 1435 Reason for Visit: New patient Chief Complaint: reports: Snoring, Excessive daytime sleepiness, Fatigue Date of Onset: YEAR Usual bedtime: 730-830PM Time it takes to fall asleep: 10-15MIN; takes melatonin 5 mg nightly for sleep Snores at night: Yes Observed to quit breathing while asleep: Yes Sleeps alone due to snoring: No Number of times waking at night: 2-3 Reasons for waking at night: reports: Bathroom. denies: Choking, Snoring, Gasping for air Toss, Turn, or Twitch while sleeping: Yes Recalls having dreams: Yes Usually gets out of bed at: 4AM Feels refreshed in the morning: Yes Morning headache: No Sleepy or fatigued during the day: Yes Ever fallen asleep while driving: No Takes day naps: Yes (daily, last 15 minutes to 1 hr) Dreams during day naps: No Prior sleep studies: No Additional HPI information: I had the pleasure of seeing RHONDA GALARZA today regarding the possibility of him having a sleep disorder. His current complaints are snoring, excessive daytime sleepiness and fatigue. His has encouraged him to come in for his loud snoring and pauses in breathing. He normally wakes feeling refreshed. He has been having issues with daytime fatigue and dizziness. His primary doctor is running lots of tests right now. So far they have not found a definitive reason for his daytime fatigue and increase in dizziness. He states he does feel somewhat refreshed in the morning. He goes to sleep around 7:30-8:30 PM and gets up around 4 AM. He has to get up 2-3 times for the bathroom. He denies waking up from snoring, choking feeling or gasping for air. 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 Patient is and lives in . Have you smoked in the past 12 months: No Alcohol use: Yes Alcohol amount and frequency: 2-3 ON OCCASION Caffeine use: Yes Caffeine amount and frequency: 3-4 DAILY Family History Family history of sleep disordered breathing: Yes Family Hx Sleep Apnea: Mother: Snoring, Father: Snoring Allergies and Home Medications Known drug allergies: Yes (as listed) Drug allergies reviewed: Yes Home medication list reviewed: Yes (see updated list in EMR) Allergy and home medication list: Allergies codeine Allergy (Verified 09/10/22 11:55) Unknown latex Allergy (Verified 09/10/22 11:55) Unknown meperidine [From Demerol] Allergy (Verified 09/10/22 11:55) Unknown Review of Systems Weight gain over past 5 years: 5-10 Cardiovascular: reports: irregular heart rate or pulse. denies: high blood pressure Respiratory: reports: shortness of breath Gastrointestinal: denies: heartburn Neurological: denies: headaches Psychiatric: reports: depression. denies: anxiety Ear/Nose/Throat: reports: sinus problems. denies: tonsillectomy Endocrine: reports: sluggishness. denies: thyroid disease Musculoskeletal: reports: joint pain Immunologic: reports: sneezing Physical Exam Vital signs obtained and entered by: ANNIKA Banuelos MA Blood Pressure: 124/60 (LEFT ARM) Cuff size: regular Heart Rate: 66 O2 Saturation: 98 Height: 6 ft 4 in Weight: 231 lb 3.2 oz Body Mass Index: 28.1 BMI Classification: Overweight Neck circumference: 17.5 Mouth and throat: narrow oropharynx Soft palate: long Hard palate: normal Uvula: normal Uvula visualization: 25% Mallampati Class III Tongue: enlarged in size with teeth bejarano on lateral edges Tonsils: small Neck: normal w/o lymphadenopathy or thyromegaly Heart: regular rate and rhythm, murmur Lungs: clear bilaterally Impression and Plan 1. Suspected Obstructive Sleep Apnea-Hypopnea Syndrome, as suggested by a history of loud and irregular snoring, observed cessation of breath while asleep, cognitive impairment, and excessive daytime sleepiness. Narrow oropharynx and obesity are common predisposing factors for obstructive sleep apnea-hypopnea syndrome. I recommend proceeding to polysomnography to confirm the diagnosis and to assess severity. If the patient has significant sleep disordered breathing, a manual CPAP titration study will also be performed to find the optimal treatment pressure. I informed the patient of what the sleep studies involve and after some discussion, obtained agreement to proceed. The pathophysiology of obstructive sleep apnea-hypopnea syndrome was discussed with the patient and health risks of cardiovascular and cerebrovascular disease if not treated. Risks of drowsy driving discussed in detail and patient advised to avoid long distance driving and to clod puller at the first sign of drowsiness. Patient agreed to plan. * Schedule polysomnography +- manual CPAP titration study and return in 1-2 weeks after the study to discuss result and initiate therapy. * Avoid long distance driving or driving when feeling sleepy. * Avoid alcohol, sedative and muscle relaxant around bedtime. * Attempt to lose weight. * Review instructions provided by trained office staff on how to prepare for the sleep study. * Return for follow-up after sleep study completed. Counseling Topics: Weight loss health impact Visit Type: In Office Time Spent with Patient (minutes): 30 Provider Statement: I spent 100% of the Face to Face Visit with the patient with greater than 50% spent counseling the patient and coordination of care.
[2022-09-11 15:14] VITALS: BP 124/60
== END 2022-09-11 14:36 | disposition home or self-care (01) ==
LOC: SC 14:35
PROVIDERS: ATTEND Nurse Practitioner Family
DX: G47.10 Hypersomnia, unspecified (principal); R53.83 Other fatigue; R06.83 Snoring; R06.81 Apnea, not elsewhere classified; E11.9 Type 2 diabetes mellitus without complications; E66.3 Overweight; Z68.28 Body mass index [BMI] 28.0-28.9, adult
CPT/HCPCS: 99203; 99212

== ENCOUNTER 2022-09-15 14:59 | Outpatient (CLI) | payer OTHER | END 2022-09-15 15:00 | disposition home or self-care (01) | LOC: MAC.MOP 14:59 | PROVIDERS: ATTEND Registered Nurse | DX: R42 Dizziness and giddiness (principal) | CPT/HCPCS: 93246 ==

== ENCOUNTER 2022-10-29 14:23 | Outpatient (CLI) | payer OTHER | END 2022-10-29 14:24 | disposition home or self-care (01) | LOC: SC 14:23 | PROVIDERS: ATTEND Nurse Practitioner Family | DX: G47.33 Obstructive sleep apnea (adult) (pediatric) (principal); R09.02 Hypoxemia; Z68.28 Body mass index [BMI] 28.0-28.9, adult | CPT/HCPCS: 95806 ==

== ENCOUNTER 2022-12-23 14:20 | Outpatient (CLI) | payer OTHER ==
--- NOTE | 2022-12-23 14:21 | SLEEP CARE CONSULTATION ---
Information from patient questionnaire entered by Neyda Martins. I have reviewed and concur with the information entered by Neyda Martins. This document represents the service I personally performed and the decisions made by , Paige Lara ARNP. History of Present Illness Service Date and Time: 12/23/2022 1400 Initial [place] Sleepiness Scale score: 18 (09/11/22) Current [place] Sleepiness Scale score: 14 (12/23/22) Additional HPI information: RHONDA GALARZA returns via video telehealth visit for follow up and results of the recently performed home sleep study. The sleep study showed moderate obstructive sleep apnea with an average AHI of 25.9 and seth oxygen saturation of 81%. I explained the pathophysiology behind obstructive sleep apnea. We then spent quite a bit of time discussing different treatment options. For mild obstructive sleep apnea, surgery and oral appliance are alternatives to nasal CPAP therapy but in moderate or severe cases, nasal CPAP is the most effective and reliable treatment. I reviewed the impact of weight changes on sleep apnea and strongly recommended losing weight. After some discussion, the patient opted to go with the nasal CPAP therapy. Nasal autoCPAP set at 4-15 cmH20 will be ordered with rationale explained. A manual titration study will be ordered if unable to find optimal pressure with office adjustments. I explained how CPAP machine works and what to expect when using the machine. Using CPAP every night in order to get used to it was emphasized. Patient advised to put CPAP mask on before getting into bed so as not to fall asleep without CPAP. To assist acclimation to CPAP use, it could also be used for a short time during day while reading or watching TV. The patient was instructed to call the CPAP supplier to discuss any mechanical problem that may occur. If the mask given is uncomfortable or is difficult to keep on through the night even with adjustment, contact the CPAP supplier as many will replace with another mask style if notified before 30 days. If snoring or perceives is not getting enough air or too much air from the machine, notify this office. Patient does not drink alcohol. Patient was cautioned about risks of drowsy driving until sleepiness symptoms resolve. Patient denies drowsy driving. Sleep Study - Results Type of Sleep Study: Home sleep study (COMPLETED 10/29/22) Prior sleep studies: No Polysomnography/Home Sleep Study results: Physician Impression: The quality of the study is good. The length of the study is adequate (> 240 minutes). Please also see the tabulated and graphic data. 1. Obstructive Sleep Apnea-Hypopnea (ICD-10 G47.33), moderate, with an AHI of 25.9/hr and seth SaO2 of 81%. During the study, the patient had 116 apneas (116 obstructive, 0 central, 0 mixed) and 65 hypopneas. The longest episode lasted 108.0 seconds. The respiratory events occurred more frequently during supine sleep (supine AHI was 48.2 and non-supine, 9.63). 2. Hypoxemia (ICD-10 R09.02), mild, with the lowest oxygen saturation of 81 % and 70.7 minutes with SaO2 under 90%. Baseline oxygen saturation was normal (Average oxygen saturation was 91%). Allergies and Home Medications Known drug allergies: Yes (as listed) Drug allergies reviewed: Yes Home medication list reviewed: Yes (Percocet fro 3 more days) Allergy and home medication list: Allergies codeine Allergy (Verified 12/22/22 12:42) Unknown latex Allergy (Verified 12/22/22 12:42) Unknown meperidine [From Demerol] Allergy (Verified 12/22/22 12:42) Unknown Review of Systems Review of systems same as previous: No (SHOULDER INJURY) Physical Exam Vital signs obtained and entered by: NEYDA Banuelos MA Height: 6 ft 4 in (PER PT) Weight: 230 lb (PER PT) Body Mass Index: 28.0 BMI Classification: Overweight Impression and Plan 1. Obstructive Sleep Apnea-Hypopnea Syndrome, moderate, with lowest oxygen saturation of 81%. Obviously this is the cause of the patients symptoms of unrefreshed sleep, and excessive daytime sleepiness. Positive pressure therapy could benefit diabetes and depression. As mentioned above, the patient will be started on nasal autoCPAP therapy with pressure set at 4-15 cmH2O. A manual titration study will be completed if unable to find optimal treatment pressure with office adjustments. Compliance guidelines also reviewed. A copy of compliance guidelines will be given for reference at check out. Because the apnea is more severe supine, I instructed to avoid sleeping supine using pillow positioning until able to start CPAP use. 2. Hypoxemia, mild, with a seth oxygen saturation of 81% and 70.7 minutes spent under 90%. His baseline oxygen saturation was normal with an average oxygen saturation of 91%. 3. Overweight, unspecified. Currently patients BMI is 28. Obesity increases the risk of apnea, CPAP pressure requirements and overall health risks especially cardiovascular and diabetes. Thus patient is advised to lose weight. * Nasal auto CPAP therapy, pressure at 4-15 cm H2O. * Attempt to lose weight. * Avoid alcohol consumption near bedtime. * Avoid supine sleep until using CPAP. * The patient is again cautioned about driving until sleepiness completely resolves. * Return one month after CPAP obtained. I will assess response to therapy and compliance at that time. Counseling Topics: Weight loss health impact Prescriptions: Auto CPAP Visit Type: Telehealth Video Video Type: Doximity Patient Location: Home Location of Provider: Office Patient agrees and consents to this telehealth visit type: Yes Patient agrees to have their insurance billed: Yes Time Spent with Patient (minutes): 24 Provider Statement: I spent 100% of the Telehealth Video Call with the patient with greater than 50% spent counseling the patient and coordination of care.
== END 2022-12-23 14:21 | disposition home or self-care (01) ==
LOC: SC 14:20
PROVIDERS: ATTEND Nurse Practitioner Family
DX: G47.33 Obstructive sleep apnea (adult) (pediatric) (principal); R09.02 Hypoxemia; E66.3 Overweight; Z68.28 Body mass index [BMI] 28.0-28.9, adult

== ENCOUNTER 2022-12-23 16:20 | Outpatient (CLI) | payer OTHER ==
--- NOTE | 2022-12-24 09:01 | MRI Report ---
PROCEDURE: SHOULDER WO - RT INDICATIONS: SPRAIN OF RIGHT SHOULDER TECHNIQUE: Noncontrast oblique coronal T2 fast spin echo with fat saturation, oblique sagittal T1 spin echo and T2 fast spin echo with fat saturation, axial T1 spin echo and T2 fast spin echo with fat saturation t hrough the shoulder. COMPARISON: CT of right shoulder dated 11/25/2022 and shoulder radiograph dated 11/25/2022. FINDINGS: Image quality: Excellent. Rotator cuff: Moderate grade articular and bursal surface partial-thickness tear involving distal sup raspinatus at its insertion on humeral head is seen extending to musculotendinous junction with focal full-thickness perforation involving anterior fibers of distal supraspinatus at its insertion on hum eral head and minimal 5 mm medial retraction of torn tendon fibers. Low-grade articular surface parti al-thickness involving distal infraspinatus at its insertion on humeral head is seen. Low-grade intra substance partial thickness tear involving distal subscapularis is also noted. Mild supraspinatus mus nancy atrophy is seen on sagittal images. Bones and bursae: No bone marrow contusions or fractures. Mild to moderate acromioclavicular joint o steoarthritic changes are noted with joint space narrowing and downward osteophyte formation depressi ng on musculotendinous junction of supraspinatus. The acromion demonstrates conventional anatomy, wit hout an os acromiale . There is moderate amount of subacromial subdeltoid bursal fluid, no gross loos e bodies. Capsule and soft tissues: There is fraying of superior anterior labrum with subtle signal abnormality at 12-1 o'clock position concerning for superior anterior labral tear. The long head of the biceps t endon appears attenuated with intrasubstance T2 hyperintense signal intra-articularly. The rotator in terval appears normal, without fibrosis. The coracohumeral ligament is normal in thickness. IMPRESSION: 1. Moderate grade articular and bursal surface partial-thickness tear involving distal supraspinatus extending to musculotendinous junction with focal full-thickness perforation involving most anterior fibers of distal supraspinatus at its insertion on humeral head and up to 5 mm medial retraction of t orn tendon fibers. Mild supraspinatus muscle atrophy. 2. Low-grade articular surface partial-thickness involving distal infraspinatus. Low-grade intrasubst ance partial thickness tear involving distal subscapularis. 3. [id number] acromioclavicular joint osteoarthritis. No fracture or dislocation. Moderate amou nt of subacromial subdeltoid bursal fluid, no gross loose bodies. 4. Suggestion of subtle superior anterior labral tear at 12 to 1:00 position. 5. Moderate grade intrasubstance partial thickness tear involving proximal intra-articular portion of long head of biceps. Reviewed by: Theron Hill MD on 12/24/2022 8:59 AM PDT Approved by: Theron Hill MD on 12/24/2022 8:59 AM PDT Station ID: [id number]
== END 2022-12-23 16:21 | disposition home or self-care (01) ==
LOC: DI 16:20
PROVIDERS: ATTEND Physician Assistant
DX: M75.121 Complete rotator cuff tear or rupture of right shoulder, not specified as traumatic (principal); M62.511 Muscle wasting and atrophy, not elsewhere classified, right shoulder; M19.011 Primary osteoarthritis, right shoulder; S46.111A Strain of muscle, fascia and tendon of long head of biceps, right arm, initial encounter; G47.33 Obstructive sleep apnea (adult) (pediatric); R09.02 Hypoxemia; E66.3 Overweight; Z68.28 Body mass index [BMI] 28.0-28.9, adult

== ENCOUNTER 2022-12-29 08:00 | Outpatient (CLI) | payer OTHER ==
--- NOTE | 2022-12-29 15:45 | XRAY Report ---
PROCEDURE: Shoulder 1 View RT INDICATIONS: LEFT SHOULDER PAIN TECHNIQUE: One views of the shoulder were acquired. COMPARISON: 11/25/2022 plain films FINDINGS: Bones: No fractures or dislocations. No suspicious bony lesions. Visualized ribs appear intact. Soft tissues: No suspicious soft tissue calcifications. The visualized lungs are within normal limi ts. IMPRESSION: Limited examination demonstrating No acute fracture. No osseous lesion. If symptoms and/o r clinical suspicion for pathology continue, further assessment with repeat plain films, or advanced imaging (e.g., CT, MRI, or bone scan) is recommended for further assessment. Reviewed by: Lyubov Bynum MD on 12/29/2022 3:44 PM PDT Approved by: Lyubov Bynum MD on 12/29/2022 3:44 PM PDT Station ID: [id number]
== END 2022-12-29 23:59 | disposition home or self-care (01) ==
LOC: DI.WOS 08:00
PROVIDERS: ATTEND Physician Assistant Surgical
DX: M25.511 Pain in right shoulder (principal)

== ENCOUNTER 2023-03-05 09:50 | Outpatient (CLI) | payer OTHER ==
--- NOTE | 2023-03-05 09:12 | SLEEP CARE CONSULTATION ---
Information from patient questionnaire entered by Neyda Martins. I have reviewed and concur with the information entered by Neyda Martins. This document represents the service I personally performed and the decisions made by , Paige Lara ARNP. History of Present Illness Service Date and Time: 03/05/2023 0900 Previous diagnosis: Moderate, Obstructive Sleep Apnea-Hypopnea Syndrome AHI: 25.9 (09/2022) Reason for follow up: first compliance Equipment type: CPAP (RESMED Airsense 11; s/u 12/2022) Equipment obtained from: [employer] (getting supplies) Mask style: Nasal Backup mask available: No (will keep old mask when replaced) Prior sleep studies: No Type of Sleep Study: Home sleep study (COMPLETED 10/29/22) HPI additional information: RHONDA GALARZA was diagnosed to have moderate, AHI 25.9, obstructive sleep apnea- hypopnea syndrome and returned today via video appointment for CPAP therapy first compliance follow-up. Sleep Study - Results Type of Sleep Study: Home sleep study (COMPLETED 10/29/22) Prior sleep studies: No CPAP Compliance Data - Data Reviewed with Patient Average duration of nightly device use: 1 hours 21 minutes Compliance rate %: 0 (/30 days used) Current pressure setting (cmH2O): 4-15 (median 5.9, avg 8.1, max 8.4) Average residual AHI: 2.9 Central apnea: 1.6 Obstructive apnea: 0.6 Average large leak: 2.6 L/min Subjective Missed days of use due to: reports: other (injury) Patient concerns: denies: aerophagia, mask discomfort, air blowing in eyes, mask leak noise, condensation in mask/hose, nasal congestion, dry mouth, nose, throat, epistaxis Observed to snore while using device: No Current pressure setting perceived as: comfortable On therapy, patient: reports: other (not using much right now). denies: drowsiness while driving Initial [place] Sleepiness Scale score: 18 (09/11/22) Current [place] Sleepiness Scale score: 11 (03/05/23) Allergies and Home Medications Known drug allergies: Yes (as listed) Drug allergies reviewed: Yes Home medication list reviewed: Yes (no changes) Allergy and home medication list: Allergies codeine Allergy (Verified 03/03/23 11:27) Unknown latex Allergy (Verified 03/03/23 11:27) Unknown meperidine [From Demerol] Allergy (Verified 03/03/23 11:27) Unknown Review of Systems Review of systems same as previous: No (TORN ROTATOR CUFF (right)) Physical Exam Vital signs obtained and entered by: NEYDA Banuelos MA Height: 6 ft 4 in (PER PT) Weight: 228 lb (PER PT) Body Mass Index: 27.7 BMI Classification: Overweight Impression and Plan 1. Obstructive Sleep Apnea-Hypopnea Syndrome, moderate, with poor treatment compliance and good apnea control. Patient has been unable to use the mask consistently like he would like because of a torn rotator cuff on his right shoulder. He states he is tossing and turning so much and not sleeping that it is hard to deal with the mask and tubing too. He wants to be able to use the CPAP nightly. We discussed ways that he could make it easier for him to use his CPAP mask even when he is tossing and turning due to pain in his shoulder. He thinks he will try to elevate his head to see if this helps as well. He does see the surgeon for his shoulder soon to determine if they are going forward with surgery. The patients pressure will be changed to autoCPAP 4-9 cmH20 to reflect pressure being used. Patient advised to contact me if pressure change is uncomfortable so that it can be adjusted. Goals for apnea control discussed. Patient's apnea severity and rationale for treatment to reduce apnea, improve sleep quality and reduce cardiovascular and cerebrovascular events was reviewed. I also reviewed the benefit of consistent device use of CPAP for diabetes and depression. 2. Overweight, unspecified. Currently patients BMI is 27.7. Obesity increases the risk of apnea, CPAP pressure requirements and overall health risks especially cardiovascular and diabetes. Thus patient is advised to lose weight. * Change auto CPAP pressure to 4-9 cmH2O * Notify me if snoring with mask or feeling that the pressure is too much or too little * Attempt to lose weight * Call this office if any problems using CPAP * Return for follow up in 1-2 months, or sooner if concerns arise Adjust device pressure to (cmH2O): 4-9 Counseling Topics: Spare mask, Weight loss health impact Follow up with Sleep Care in: 1-2 months Visit Type: Telehealth Video Video Type: Doxyareli Patient Location: Home Location of Provider: Office Patient agrees and consents to this telehealth visit type: Yes Patient agrees to have their insurance billed: Yes Time Spent with Patient (minutes): 18 Provider Statement: I spent 100% of the Telehealth Video Call with the patient with greater than 50% spent counseling the patient and coordination of care.
== END 2023-03-05 09:51 | disposition home or self-care (01) ==
LOC: SC 09:50
PROVIDERS: ATTEND Nurse Practitioner Family
DX: G47.33 Obstructive sleep apnea (adult) (pediatric) (principal); E66.3 Overweight; Z68.27 Body mass index [BMI] 27.0-27.9, adult

== ENCOUNTER 2023-03-24 07:03 | Outpatient (CLI) | payer OTHER ==
[2023-03-24 21:40] LABS: ESTIMATED AVERAGE GLUCOSE 189 mg/dL (70-100); HEMOGLOBIN A1c% 8.2 % (4.27-6.07)
== END 2023-03-24 07:04 | disposition home or self-care (01) ==
LOC: LAB.S 07:03
PROVIDERS: ATTEND Physician Assistant Surgical
DX: E11.8 Type 2 diabetes mellitus with unspecified complications (principal)
CPT/HCPCS: 36415; 83036

== ENCOUNTER 2023-05-27 13:02 | Outpatient (CLI) | payer OTHER ==
--- NOTE | 2023-05-27 14:03 | CT Report ---
PROCEDURE: Head WO INDICATIONS: ORTHOSTATIC DIZZINESS TECHNIQUE: Noncontrast 4.5 mm thick angled axial sections acquired from the foramen magnum to the vertex. For r adiation dose reduction, the following was used: automated exposure control, adjustment of mA and/or kV according to patient size. COMPARISON: None. FINDINGS: Image quality: Excellent. CSF spaces: Basal cisterns are patent. No extra-axial fluid collections. Mild age-related global v olume loss. Intracranial atherosclerotic vascular calcifications are present. Ventricles are normal i n size and shape. Brain: No midline shift. No intracranial masses or hemorrhage. Song-white matter interface is norm al. Skull and face: Calvarium and visualized facial bones are intact, without suspicious lesions. Sinuses: Visualized sinuses and mastoids are clear. IMPRESSION: No cause for patient's symptoms is identified. No acute intracranial pathology. Reviewed by: Kee Field MD on 05/27/2023 2:02 PM PDT Approved by: Kee Field MD on 05/27/2023 2:02 PM PDT Station ID: [id number]
== END 2023-05-27 13:03 | disposition home or self-care (01) ==
LOC: DI 13:02
PROVIDERS: ATTEND Registered Nurse
DX: R42 Dizziness and giddiness (principal); R29.6 Repeated falls

== ENCOUNTER 2023-05-28 07:29 | Outpatient (CLI) | payer OTHER ==
[2023-05-28 16:50] LABS: CALCIUM 9.9 mg/dL (8.5-10.3); CREATININE 0.9 mg/dL (0.6-1.3); POTASSIUM 4.4 mmol/L (3.5-4.5)
[2023-05-28 19:00] LABS: ESTIMATED AVERAGE GLUCOSE 171 mg/dL (70-100); HEMOGLOBIN A1c% 7.6 % (4.27-6.07)
== END 2023-05-28 07:30 | disposition home or self-care (01) ==
LOC: LAB.S 07:29
PROVIDERS: ATTEND Registered Nurse
DX: E11.65 Type 2 diabetes mellitus with hyperglycemia (principal)
CPT/HCPCS: 36415; 80048; 83036; 84681